=== PATIENT | female | born 1945 | race Caucasian/White ===

== ENCOUNTER 2021-09-06 06:33 | Day surgery (SDC) | payer MEDICARE, OTHER ==
[2021-09-02 10:57] LABS: BASOPHILS # (AUTO) 0.1 X10'3 (0-0.2); EOSINOPHILS # (AUTO) 0.1 X10'3 (0-0.9); LYMPHOCYTES # (AUTO) 1.1 X10'3 (1.1-4.8); LYMPHOCYTES % (AUTO) 11.7 % (21-51); MEAN CORPUSCULAR HEMOGLOBIN 28.2 PG (27.0-31.0); MEAN CORPUSCULAR HGB CONC 33.5 g/dL (33.0-36.5); MEAN CORPUSCULAR VOLUME 84.1 FL (78-98); MEAN PLATELET VOLUME 8.7 FL (7.4-10.4); MONOCYTES # (AUTO) 0.9 X10'3 (0-0.9); MONOCYTES % (AUTO) 9.8 % (2-12); NEUTROPHILS % (AUTO) 76.5 % (42-75); PRE OP HEMATOCRIT 47.7 % (35.0-45.0); PRE OP PLATELET COUNT 195 X10'3 (140-440); RED BLOOD COUNT 5.68 X10'6 (4.20-5.60); RED CELL DISTRIBUTION WIDTH 15.8 % (11.5-14.5)
[2021-09-02 11:43] LABS: ALBUMIN 3.9 G/DL (3.4-5.0); ALBUMIN/GLOBULIN RATIO 1.4 (1.1-1.5); ALKALINE PHOSPHATASE 104 IU/L (46-116); BLOOD UREA NITROGEN 32 MG/DL (7-18); CALCIUM 9.2 MG/DL (8.5-10.1); CHLORIDE 104 MMOL/L (99-107); CREATININE 0.94 MG/DL (0.40-0.90); PRE OP ALT 26 U/L (30-65); PRE OP ANION GAP 8 (8-16); PRE OP AST 21 U/L (10-37); PRE OP BILIRUB, TOTAL 0.6 MG/DL (0.0-1.0); PRE OP GLUCOSE 143 MG/DL (70-104); PRE OP SODIUM 141 MMOL/L (135-145); TOTAL CARBON DIOXIDE 28.8 MMOL/L (24-32); TOTAL PROTEIN 6.6 G/DL (6.4-8.2); eGFR 58 ML/MIN
[2021-09-02 11:45] LABS: PRE OP POTASSIUM 3.3 MMOL/L (3.4-5.1)
[~2021-09-06] VITALS: Ht 160 cm; Wt 73.9 kg
[2021-09-06] VITALS (11 sets, daily range): BP systolic 104–130; BP diastolic 58–68
[~2021-09-06 06:33] MED LIST: ALLO100T25 PO; ATOR-2 PO; EMPA25TA PO; GLIM1TAB6 PO; INSU100I8; LANTUS SQ; LOSA25TA41 PO; METH-797 PO; OXYB10TA30 PO; PREG75CA75 PO; SITA100T15 PO; TEMA15CA PO; VENL75CA61 PO; ZAR2.5T PO; [UNRECOGNIZED DRUG - CODE] PO; cefazolin/dext.iso 2gm/50ml IV ONE; famotidine 20mg tablet PO ONE; ringers solution, lacted 1,000 ML IV SCH
[2021-09-06] MEDS ORDERED: BUPIVAcaine 0.5% inj/PF 30 ML ONE (06:41)
[2021-09-06] MEDS ORDERED: LIDOcaine 1% 30ml preserv. free vial ONE (07:35)
[2021-09-06] MEDS ORDERED: BUPIVAcaine 0.5% inj/PF 30 ml vial IJ ONE (09:25)
[2021-09-06] MEDS ORDERED: midazolam 1 mg/ML 2ml injection ONE (09:38)
[2021-09-06] MEDS ORDERED: fentaNYL/PF 50MCG/1 ML 2ML syringe ONE (09:38)
[2021-09-06] MEDS ORDERED: morphine 2 MG/ML inj. syringe IV PRN (10:15)
[2021-09-06] MEDS ORDERED: proCHLORperazine 10 MG/2 ml inj IV PRN (10:15)
[2021-09-06] MEDS ORDERED: ondansetron/PF 4mg/2ml inj IV PRN (10:15)
[2021-09-06] MEDS ORDERED: meperidine/PF 25mg/ml syringe IV PRN ×3 (10:15)
[2021-09-06] MEDS ORDERED: morphine 4 MG/ML inj SYRINge IV PRN (10:15)
[2021-09-06] MEDS ORDERED: ringers solution, lacted 1,000 ML IV SCH (10:15)
--- NOTE | 2021-09-06 10:18 | NUR ---
Received from OR via [facility], accompanied by Anesthesiologist DR GARZA and report given by Anesthesiologist. PT DROWSY, DENIES PAIN. LEFT HAND/WRIST W/BIAS DRSG COVERING CDI. 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 Addendum: 09/06/21 at 1033 by Dalia Collazo RN Amended: Links added.
--- NOTE | 2021-09-06 12:08 | NUR ---
PT AWAKE AND TOLERATES ORAL FLUIDS, STATES STILL HAS NO PAIN. PT ABLE TO AMBULATE SAFELY W/CANE. D/C INSTRUCTIONS GIVEN AND GONE OVER W/PT WHO VERBALIZED UNDERSTANDING. PT D/CD TO HOME VIA W/C TO PRIVATE VEHICLE W/O INCIDENT. Addendum: 09/06/21 at 1228 by Dalia Collazo RN Amended: Links added.
== END 2021-09-06 12:08 | disposition home or self-care (01) ==
LOC: PAS 06:33
PROVIDERS: ATTEND Orthopaedic Surgery Hand Surgery
DX: R22.32 Localized swelling, mass and lump, left upper limb (principal); D17.39 Benign lipomatous neoplasm of skin and subcutaneous tissue of other sites; F32.9 Major depressive disorder, single episode, unspecified; F41.9 Anxiety disorder, unspecified; E11.69 Type 2 diabetes mellitus with other specified complication; E78.00 Pure hypercholesterolemia, unspecified; M18.12 Unilateral primary osteoarthritis of first carpometacarpal joint, left hand; M17.12 Unilateral primary osteoarthritis, left knee; J45.909 Unspecified asthma, uncomplicated; F17.210 Nicotine dependence, cigarettes, uncomplicated; E11.40 Type 2 diabetes mellitus with diabetic neuropathy, unspecified; G89.29 Other chronic pain; F32.A Depression, unspecified; Z20.822 Contact with and (suspected) exposure to COVID-19; Z87.440 Personal history of urinary (tract) infections; Z86.19 Personal history of other infectious and parasitic diseases; Z79.4 Long term (current) use of insulin; Z79.899 Other long term (current) drug therapy; Z98.890 Other specified postprocedural states; Z90.710 Acquired absence of both cervix and uterus; Z72.89 Other problems related to lifestyle; Z98.41 Cataract extraction status, right eye; Z98.42 Cataract extraction status, left eye; Z88.2 Allergy status to sulfonamides; Z88.8 Allergy status to other drugs, medicaments and biological substances; Z80.3 Family history of malignant neoplasm of breast; Z82.3 Family history of stroke; Z83.3 Family history of diabetes mellitus; Z82.49 Family history of ischemic heart disease and other diseases of the circulatory system
CPT/HCPCS: 25071; 36415; 80053; 82948; 85025; J0690; J2250; J3010; J3490; J7030; J7120; S0020; U0003; U0005; Z7506; Z7512; A4215; A4618; A6449; A7000

== ENCOUNTER 2025-01-06 19:06 | Emergency (ER) | payer MEDICARE, OTHER ==
[~2025-01-06] VITALS: Ht 160 cm; Wt 63.5 kg
[~2025-01-06 19:06] MED LIST changes: +ERGO125013 PO; +GLIM1TAB56 PO; -GLIM1TAB6 PO; -PREG75CA75 PO; +PREG75CA76 PO; -[UNRECOGNIZED DRUG - CODE] PO; -cefazolin/dext.iso 2gm/50ml IV ONE; -famotidine 20mg tablet PO ONE; -ringers solution, lacted 1,000 ML IV SCH
--- NOTE | 2025-01-06 19:10 | Physician Documentation ---
History of Present Illness ~ Stated Complaint: RT LEG EDEMA AND REDNESS Time Seen by MD: 20:57 Source: patient Mode of Arrival: POV Exam Limitations: no limitations HPI Patient is sent over by her PCP to rule out DVT. Patient has had swelling in both of her legs and but she is not sure how long. History of DVT and not currently on blood thinners. No chest pain or shortness of breath. Medication Reconciliation Allergies: Coded Allergies: Sulfa (Sulfonamide Antibiotics) (Verified Allergy, Unknown, 11/11/10) triamcinolone acetonide (Verified Allergy, Unknown, 11/11/10) Scheduled Allopurinol (Allopurinol), 1 TAB PO DAILY, (Reported) Atorvastatin Calcium (Atorvastatin Calcium), 1 TAB PO HS, (Reported) Empagliflozin (Jardiance), 1 TAB PO HS, (Reported) Ergocalciferol (Vitamin D2) (Vitamin D2), 1 TAB PO Q7D, (Reported) Glimepiride (Glimepiride), 4 MG PO DAILY, (Reported) Insulin Glargine,Hum.rec.anlog* (Lantus*), 10 UNITS SQ HS, (Reported) Losartan Potassium (Losartan Potassium), 1 TAB PO HS, (Reported) Methocarbamol (Methocarbamol), 1 TAB PO Q12H, (Reported) Metolazone (ZAROXOLYN tablet), 1 TAB PO BID, (Reported) Oxybutynin Chloride (Ditropan Xl), 1 TAB PO DAILY, (Reported) Pregabalin (Pregabalin), 1 CAP PO BID, (Reported) Sitagliptin Phosphate* (Januvia*), 1 TAB PO HS, (Reported) Venlafaxine Hcl (Venlafaxine Hcl Er), 1 CAP PO HS, (Reported) Scheduled PRN Insulin Lispro (Humalog), ACHS PRN for BLOOD SUGARS, (Reported) Temazepam (Temazepam), 1 CAP PO HS PRN for sleep, (Reported) Past Medical History Other Past Medical History: History of DVT Review of Systems All Other Systems at this time: Reviewed and Negative Physical Exam Physical Exam General: Alert and oriented x4, well-appearing, well-nourished, no acute distress HEENT: Normocephalic, atraumatic, no visible or palpable masses or depression, extraocular movements intact, PERRLA, no scleral icterus, neck is supple and nontender, mucous membranes moist Heart: Regular rate and rhythm, no murmurs, rubs or gallops Lungs: Clear to auscultation bilaterally, normal work of breathing Abdomen: Soft, nontender, no palpable masses, normal bowel sounds Back: Spine is without deformity or tenderness, no CVA tenderness Extremities: Full range of motion, no acute deformity, peripheral pulses intact, no cyanosis bilateral 1+ pitting edema with bilateral venous stasis on the lower portion of the legs Musculoskeletal: Normal gait, normal tone Neurologic: Cranial nerves 2-12 are intact, reflexes normal Psychiatric: Alert and oriented x4, judgment and insight normal, normal mood and affect Skin: Good turgor, no rashes Progress Results/Orders Results/Orders Orders - ASTER GALVAN MD Vl Venous (01/06/25 21:11) Completed Orders - ASTER GALVAN MD BMP (01/06/25 19:36) Cbc/Diff (01/06/25 19:36) PTT (01/06/25 19:36) Vl Venous (01/06/25 21:11) Vital Signs 01/06/25 01/06/25 01/06/25 01/07/25 19:15 19:22 21:44 00:38 Temp 98.7 98.3 Pulse 83 80 92 Resp 18 18 16 18 B/P (MAP) 128/76 152/81 (104) 143/84 Pulse Ox 96 91 O2 Flow Rate 2.0 Laboratory Tests Test 01/06/25 19:30 White Blood Count 6.3 Red Blood Count 5.10 Hemoglobin 14.2 Hematocrit 43.2 Mean Corpuscular Volume 84.8 Mean Corpuscular Hemoglobin 27.9 Mean Corpuscular Hemoglobin Concent 32.9 L Red Cell Distribution Width 18.9 H Platelet Count 211 Mean Platelet Volume 8.2 Neutrophils (%) (Auto) 70.2 Lymphocytes (%) (Auto) 17.8 L Monocytes (%) (Auto) 9.1 Eosinophils (%) (Auto) 2.2 Basophils (%) (Auto) 0.7 Neutrophils # (Auto) 4.4 Lymphocytes # (Auto) 1.1 Monocytes # (Auto) 0.6 Eosinophils # (Auto) 0.1 Basophils # (Auto) 0.0 CBC Comment Platelet Estimate Normal Red Blood Cell Morphology Perf Basophilic Stippling Anisocytosis 2+ Activated Partial Thromboplast Time 30 Coagulation Comments Sodium Level 143 Potassium Level 4.1 Chloride Level 108 H Carbon Dioxide Level 27.0 Anion Gap 8 Blood Urea Nitrogen 29 H Creatinine 0.98 H Estimated GFR/1.73 m2 54 BUN/Creatinine Ratio 29.6 H Glucose Level 186 H Calcium Level 9.2 Albumin 3.0 L Chemistry Comments Medical Decision Making Additional Comment Differential includes but isn't limited to: DVT, lower extremity edema, venous stasis, right heart failure Departure Disposition: HOME / SELF CARE / HOMELESS Impression: Primary Impression: Chronic venous stasis dermatitis of both lower extremities Additional Impression Text Ultrasound of bilateral lower extremities was negative for DVT. Discharging patient home in good condition. She is to follow up with her PCP as needed. Return here if new or worsening symptoms. Condition: Stable Discharge Instructions: Peripheral Edema, Stasis Dermatitis Additional Instructions: Follow-up with your doctor in 7-10 days. Return here if new or worsening symptoms prior to follow-up. Referrals: NO PRIMARY CARE PROVIDER (PCP) Education Educated: Patient Educated regarding: diagnosis, treatment, prognosis, need for follow up Signature Scribe Signature: No Scribe Attestation: No scribe JEN STONE NP Jan 06, 2025 19:10 ASTER GALVAN MD Jan 06, 2025 23:58
[2025-01-06 19:57] LABS: BASOPHILS % (AUTO) 0.7 % (0-1); EOSINOPHILS # (AUTO) 0.1 X10'3 (0-0.9); EOSINOPHILS % (AUTO) 2.2 % (0-6); HEMATOCRIT 43.2 % (35.0-45.0); HEMOGLOBIN 14.2 g/dl (12.0-16.0); LYMPHOCYTES # (AUTO) 1.1 X10'3 (1.1-4.8); LYMPHOCYTES % (AUTO) 17.8 % (21-51); MEAN CORPUSCULAR HEMOGLOBIN 27.9 PG (27.0-31.0); MEAN CORPUSCULAR HGB CONC 32.9 g/dL (33.0-36.5); MEAN CORPUSCULAR VOLUME 84.8 FL (78-98); MEAN PLATELET VOLUME 8.2 FL (7.4-10.4); MONOCYTES # (AUTO) 0.6 X10'3 (0-0.9); MONOCYTES % (AUTO) 9.1 % (2-12); NEUTROPHILS # (AUTO) 4.4 X10'3 (1.8-7.7); NEUTROPHILS % (AUTO) 70.2 % (42-75); PLATELET COUNT 211 X10'3 (140-440); RED CELL DISTRIBUTION WIDTH 18.9 % (11.5-14.5); WHITE BLOOD COUNT 6.3 X10'3 (4.5-11.0)
[2025-01-06 20:03] LABS: ANION GAP 8 (8-16); BLOOD UREA NITROGEN 29 MG/DL (7-18); BUN/CREATININE RATIO 29.6 (10.0-20.0); CALCIUM 9.2 MG/DL (8.5-10.1); CHLORIDE 108 MMOL/L (99-107); CREATININE 0.98 MG/DL (0.40-0.90); GLUCOSE 186 MG/DL (70-104); POTASSIUM 4.1 MMOL/L (3.5-5.1); SODIUM 143 MMOL/L (135-145); eCRCL 37 ML/MIN; eGFR 54 ML/MIN
[2025-01-06 20:05] LABS: APTT 30 SECONDS (22-32)
[2025-01-06 20:31] LABS: ANISOCYTOSIS 2+; PLATELET ESTIMATE NORMAL
[2025-01-07 00:38] VITALS: BP 143/84; PULSE 92; RESP 18; TEMP 98.3; O2SAT 91
--- NOTE | 2025-01-07 18:24 | VASCULAR REPORT ---
VASC VL VENOUS HISTORY: swelling COMPARISON: None TECHNIQUE: Duplex doppler evaluation of the deep venous system of the lower extremity from the common femoral veins, superficial femoral vein, great saphenous vein, deep femoral vein, popliteal vein, an d calf veins, including color doppler and spectral/pulsed waveform analysis, was performed. FINDINGS: Right: - Common femoral vein: Compressible - Deep femoral vein: Compressible - Femoral vein: Compressible - Popliteal vein: Compressible - Posterior tibial vein: Waveforms present - Peroneal vein: Waveforms present - Other: Nothing Left: - Common femoral vein: Compressible - Deep femoral vein: Compressible - Femoral vein: Compressible - Popliteal vein: Compressible - Posterior tibial vein: Waveforms present - Peroneal vein: Waveforms present - Other: Nothing IMPRESSION: No right or left lower extremity deep venous thrombosis.
== END 2025-01-07 01:06 | disposition home or self-care (01) ==
LOC: ER 19:07
DX: I87.2 Venous insufficiency (chronic) (peripheral) (principal); Z79.4 Long term (current) use of insulin; Z88.2 Allergy status to sulfonamides; Z88.8 Allergy status to other drugs, medicaments and biological substances; Z86.718 Personal history of other venous thrombosis and embolism
CPT/HCPCS: 36415; 80048; 85008; 85025; 85730; 93970; 99284